=== PATIENT | male | born 1950 | race Caucasian/White ===

== ENCOUNTER 2017-03-25 10:32 | Emergency (ER) | payer OTHER ==
[~2017-03-25] VITALS: Ht 195.6 cm; Wt 110.0 kg
[~2017-03-25 10:32] MED LIST: AMIT10TA13 PO; ATOR10 PO; LISI-360 PO; TIZA4CAP PO; ZEGE20CA4 PO
[2017-03-25 10:35] VITALS: BP 150/79; PULSE 90; RESP 17; TEMP 97.9; O2SAT 97
--- NOTE | 2017-03-25 11:03 | PD ---
HPI . bilateral eye irritation since about 2 hours ago Chief Complaint: Eye Problems/Injury Time Seen by Provider: 11:02 Travel History International Travel<30 days: No Contact w/Intl Traveler<30days: No Traveled to known affect area: No History of Present Illness HPI 66-year-old male with a history of hypertension here with complaints of bilateral eye irritation approximately starting 2 hours ago. Patient was out working in his yard and thinks that he may have come in contact with some type of weird latex type of plant. He says now both of his eyes are burning. He tried flushing them out at home with water, however the burning persisted. PFSH Past Medical History Asthma: No Cancer: No COPD: No Diabetes: No Hepatitis: No Hiatal Hernia: No Thyroid Disease: No Past Surgical History Abdominal Surgery: Yes (LAP CHOLECYSTECTOMY) Pacemaker: No Social History Tobacco Use: No Allergies-Medications (Allergen,Severity, Reaction): Coded Allergies: meperidine (Unverified Allergy, Severe, 03/25/17) MAKES PT NERVOUS Reported Meds & Prescriptions Reported Meds & Active Scripts Active Opcon-A 0.027-0.315 % (Naphazoline W/ Pheniramine) 0.51355 %-0.315 % Kristin 1 Drp EACH EYE Q6HR Reported Lisinopril 40 Mg Tab 40 Mg PO DAILY Review of Systems General / Constitutional: No: Fever Eyes: Positive: Redness, Tearing, No: Visual changes HENT: No: Headaches Cardiovascular: No: Chest Pain or Discomfort Respiratory: No: Shortness of Breath Gastrointestinal: No: Abdominal Pain Genitourinary: No: Dysuria Musculoskeletal: No: Pain Skin: No Rash Neurologic: No: Weakness Psychiatric: No: Depression Endocrine: No: Polydipsia Hematologic/Lymphatic: No: Easy Bruising Physical Exam Narrative GENERAL: AAO x 3, no acute distress, Well-nourished, well-developed patient. SKIN: Warm and dry. No visible rashes or bruising. HEAD: Normocephalic and atraumatic. EYES: No scleral icterus. No injection or drainage. EOM intact, PERRLA, bilateral eye erythema otherwise normal exam. ENT: No nasal drainage noted. Mucous membranes pink. Airway patent. NECK: Supple, trachea midline. No JVD. CARDIOVASCULAR: Regular rate and rhythm without murmurs, gallops, or rubs. RESPIRATORY: Breath sounds equal bilaterally. No accessory muscle use. No rhonchi or rales. GASTROINTESTINAL: Visual inspection normal EXTREMITIES: No cyanosis or edema. BACK: No obvious deformity. NEURO: CN II-12 intact, PSYCH: AAO x 3, normal affect. Data Data Last Documented VS Vital Signs Date Time Temp Pulse Resp B/P (MAP) Pulse Ox O2 Delivery O2 Flow Rate FiO2 03/25/17 12:14 03/25/17 10:35 97.9 90 17 97 Orders Orders Proparacaine 0.5% Opth Soln (Alcaine 0.5 (03/25/17 11:15) Eye Irrigation (03/25/17 11:06) MDM Medical Decision Making Medical Screen Exam Complete: Yes Emergency Medical Condition: Yes Medical Record Reviewed: Yes Differential Diagnosis Allergic conjunctivitis, foreign body, less likely bacterial conjunctivitis Narrative Course 66-year-old male here with bilateral eye irritation since working in his yard earlier today. Eye examination was done. I've ordered bilateral eye irritation with Earnest lens. After the eye irrigation, patient was feeling better. There was no appreciable corneal abrasion in either eyes. There was no visible foreign body. I recommend antihistamine eye drops. Recommend f/u with sales representative uniforms. I discussed the case with my attending Dr. Tomlinson, who is in agreement with the recommendations. Patient verbalized understanding of instructions, questions were answered, and thanked me for their care. I advised them if their condition worsens, please return to the nearest emergency room for further care. Procedures Procedure Narrative Fluorescein eye staining procedure: proparacaine drops instilled into the bilateral eyes Local anesthesia was accomplished. the eye was inspected for any type of obvious foreign body fluorescein stain was applied to look for corneal abrasion: none Diagnosis Primary Impression: Allergic conjunctivitis Qualified Codes: H10.13 - Acute atopic conjunctivitis, bilateral Referrals: [facility] Pt SpecificInfo: Prescription(s) given Scripts Naphazoline W/ Pheniramine (Opcon-A 0.027-0.315 %) 0.90868 %-0.315 % Kristin 1 DRP EACH EYE Q6HR, #1 Prov: Jonas Tomlinson MD 03/25/17 Disposition: 01 DISCHARGE HOME Condition: Stable Angie Roberto Mar 25, 2017 11:03
[2017-03-25] MEDS ORDERED: PROPARACAINE HCL 0.5% OPHT SOLN 15 ML BTL EACH EYE ONE (11:15)
[2017-03-25] MEDS ORDERED: LISI40TA PO (11:54)
[2017-03-25] MEDS ORDERED: OPCOSOL EACH EYE (12:05)
== END 2017-03-25 12:15 | disposition home or self-care (01) ==
LOC: NEPD 10:32
DX: H10.13 Acute atopic conjunctivitis, bilateral (principal); I10 Essential (primary) hypertension
CPT/HCPCS: 99283